=== PATIENT | male | born 1960 | race Caucasian/White ===

== ENCOUNTER 2016-09-24 09:31 | Outpatient (CLI) | payer OTHER | END 2016-09-24 09:32 | disposition home or self-care (01) | DX: I10 Essential (primary) hypertension (principal); E78.2 Mixed hyperlipidemia; Z79.899 Other long term (current) drug therapy; Z12.5 Encounter for screening for malignant neoplasm of prostate ==

== ENCOUNTER 2016-11-27 08:00 | Outpatient (CLI) | payer OTHER ==
[2016-11-27 09:08] LABS: ALBUMIN/GLOBULIN RATIO 1.5 (1.0-2.2); BILIRUBIN,TOTAL 1.2 mg/dL (0.2-1.0); BUN - BLOOD UREA NITROGEN 20 mg/dL (6-20); CALCIUM 9.1 mg/dL (8.5-10.3); CARBON DIOXIDE - CO2 29 mmol/L (21-32); CHLORIDE 101 mmol/L (101-111); CHOL/HDL RATIO 5.8 (<5.0); CHOLESTEROL 274 mg/dL; CREATININE 1.2 mg/dL (0.6-1.2); GFR - MDRD 62 (>89); GLUCOSE 108 mg/dL (70-100); HDL CHOLESTEROL 47 mg/dL; LDL/HDL RATIO 3.5 (<3.6); POTASSIUM 4.2 mmol/L (3.5-5.0); SODIUM 137 mmol/L (135-145); TOTAL PROTEIN 7.4 g/dL (6.7-8.2); TRIGLYCERIDES 322 mg/dL; VLDL CHOLESTEROL 64 mg/dL
== END 2016-11-27 08:01 | disposition home or self-care (01) ==
LOC: LAB.R 08:00
PROVIDERS: ATTEND Physician Assistant Medical
DX: I10 Essential (primary) hypertension (principal); E78.2 Mixed hyperlipidemia; R19.7 Diarrhea, unspecified; Z79.899 Other long term (current) drug therapy
CPT/HCPCS: 80053; 80061

== ENCOUNTER 2016-11-29 08:07 | Outpatient (CLI) | payer OTHER ==
[2016-12-12 23:11] LABS: TEST RESULT REPORT (())
== END 2016-11-29 08:08 | disposition home or self-care (01) ==
LOC: LAB.R 08:07
PROVIDERS: ATTEND Physician Assistant Medical
DX: I10 Essential (primary) hypertension (principal); E78.2 Mixed hyperlipidemia; R19.7 Diarrhea, unspecified; Z79.899 Other long term (current) drug therapy
CPT/HCPCS: 81599; 82705; 83630; 87045; 87046; 87077; 87177; 87209; 87329; 87493

== ENCOUNTER → 2017-02-19 | Outpatient (CLI) | payer OTHER ==
[2017-02-19 14:14] LABS: CHOL/HDL RATIO 4.3 (<5.0); CHOLESTEROL 223 mg/dL; HDL CHOLESTEROL 52 mg/dL; TRIGLYCERIDES 438 mg/dL
[2017-02-19 14:52] LABS: LDL CHOLESTEROL,DIRECT 95 mg/dL
== END ==
LOC: LAB.R 08:00
PROVIDERS: ATTEND Physician Assistant Medical
DX: E78.2 Mixed hyperlipidemia (principal); Z79.899 Other long term (current) drug therapy
CPT/HCPCS: 80061; 84450; 84460

== ENCOUNTER 2017-08-20 08:00 | Outpatient (CLI) | payer OTHER ==
[2017-08-20 14:04] LABS: ALBUMIN 4.7 g/dL (3.2-5.5); ALBUMIN/GLOBULIN RATIO 1.7 (1.0-2.2); ALKALINE PHOSPHATASE 46 IU/L (42-121); ALT ALANINE AMINOTRANSFERASE 35 IU/L (10-60); AST ASPARTATE AMINOTRANSFERASE 29 IU/L (10-42); BILIRUBIN,TOTAL 1.1 mg/dL (0.2-1.0); BUN - BLOOD UREA NITROGEN 18 mg/dL (6-20); CALCIUM 9.5 mg/dL (8.5-10.3); CARBON DIOXIDE - CO2 26 mmol/L (21-32); CHLORIDE 102 mmol/L (101-111); CHOL/HDL RATIO 5.2 (<5.0); CHOLESTEROL 214 mg/dL; GFR - MDRD 77 (>89); GLUCOSE 101 mg/dL (70-100); HDL CHOLESTEROL 41 mg/dL; LDL CHOLESTEROL,CALCULATED 119 mg/dL; LDL/HDL RATIO 2.9 (<3.6); SODIUM 137 mmol/L (135-145); TOTAL PROTEIN 7.5 g/dL (6.7-8.2); VLDL CHOLESTEROL 54 mg/dL
== END 2017-08-20 08:01 | disposition home or self-care (01) ==
LOC: LAB.R 08:00
PROVIDERS: ATTEND Physician Assistant Medical
DX: E78.5 Hyperlipidemia, unspecified (principal); Z79.899 Other long term (current) drug therapy
CPT/HCPCS: 80053; 80061; 83721

== ENCOUNTER 2018-06-27 08:00 | Outpatient (CLI) | payer OTHER ==
[2018-06-27 12:22] LABS: BASOPHILS % (AUTO) 0.9 %; EOSINOPHILS # (AUTO) 0.1 10^3/uL (0.0-0.7); EOSINOPHILS % (AUTO) 3.4 %; HGB - HEMOGLOBIN 15.3 g/dL (14.0-18.0); LYMPHOCYTES # (AUTO) 1.1 10^3/uL (1.5-3.5); LYMPHOCYTES % (AUTO) 29.5 %; MEAN CORPUSCULAR HGB CONC 34.4 g/dL (32.0-36.0); MEAN CORPUSCULAR VOLUME 92.9 fL (80.0-94.0); MEAN PLATELET VOLUME 7.4 fL (7.4-11.4); MONOCYTES # (AUTO) 0.4 10^3/uL (0.0-1.0); NEUTROPHILS # (AUTO) 2.1 10^3/uL (1.5-6.6); NEUTROPHILS % (AUTO) 56.2 %; PLT - PLATELET COUNT 199 10^3/uL (130-450); RED BLOOD COUNT 4.77 10^6/uL (4.70-6.10); RED CELL DISTRIBUTION WIDTH 14.2 % (12.0-15.0); WHITE BLOOD COUNT 3.7 x10^3/uL (4.8-10.8)
[2018-06-27 12:38] LABS: ALBUMIN 4.5 g/dL (3.2-5.5); ALBUMIN/GLOBULIN RATIO 1.5 (1.0-2.2); ALKALINE PHOSPHATASE 60 IU/L (42-121); ALT ALANINE AMINOTRANSFERASE 39 IU/L (10-60); AST ASPARTATE AMINOTRANSFERASE 32 IU/L (10-42); BILIRUBIN,TOTAL 0.7 mg/dL (0.2-1.0); BUN - BLOOD UREA NITROGEN 23 mg/dL (6-20); CALCIUM 9.2 mg/dL (8.5-10.3); CARBON DIOXIDE - CO2 30 mmol/L (21-32); CHLORIDE 102 mmol/L (101-111); CHOL/HDL RATIO 4.5 (<5.0); CHOLESTEROL 203 mg/dL; GFR - MDRD 77 (>89); GLUCOSE 100 mg/dL (70-100); HDL CHOLESTEROL 45 mg/dL; LDL CHOLESTEROL,CALCULATED 102 mg/dL; LDL/HDL RATIO 2.3 (<3.6); SODIUM 137 mmol/L (135-145); TOTAL PROTEIN 7.5 g/dL (6.7-8.2); VLDL CHOLESTEROL 56 mg/dL
[2018-06-28 12:16] LABS: HEPATITIS C ANTIBODY NON-REACTIVE (NON-REACTIVE)
== END 2018-06-27 23:59 | disposition home or self-care (01) ==
LOC: LAB.R 08:00
PROVIDERS: ATTEND Physician Assistant Medical
DX: Z00.00 Encounter for general adult medical examination without abnormal findings (principal); E78.2 Mixed hyperlipidemia; Z13.818 Encounter for screening for other digestive system disorders; Z79.899 Other long term (current) drug therapy
CPT/HCPCS: 80053; 80061; 83721; 85025; 86803

== ENCOUNTER 2019-07-13 09:38 | Outpatient (CLI) | payer OTHER ==
[2019-07-13 10:08] LABS: BASOPHILS % (AUTO) 0.6 %; EOSINOPHILS # (AUTO) 0.1 10^3/uL (0.0-0.7); EOSINOPHILS % (AUTO) 3.1 %; HGB - HEMOGLOBIN 15.1 g/dL (14.0-18.0); LYMPHOCYTES % (AUTO) 30.3 %; MEAN CORPUSCULAR HEMOGLOBIN 32.8 pg (27.0-31.0); MEAN CORPUSCULAR HGB CONC 34.4 g/dL (32.0-36.0); MEAN CORPUSCULAR VOLUME 95.4 fL (80.0-94.0); MEAN PLATELET VOLUME 8.8 fL (7.4-11.4); MONOCYTES # (AUTO) 0.4 10^3/uL (0.0-1.0); MONOCYTES % (AUTO) 11.1 %; NEUTROPHILS # (AUTO) 1.8 10^3/uL (1.5-6.6); NEUTROPHILS % (AUTO) 54.6 %; PLT - PLATELET COUNT 194 10^3/uL (130-450); RED CELL DISTRIBUTION WIDTH 13.2 % (12.0-15.0); WHITE BLOOD COUNT 3.2 x10^3/uL (4.8-10.8)
[2019-07-13 10:52] LABS: ALBUMIN 4.6 g/dL (3.2-5.5); ALBUMIN/GLOBULIN RATIO 1.6 (1.0-2.2); ALKALINE PHOSPHATASE 50 IU/L (42-121); ALT ALANINE AMINOTRANSFERASE 47 IU/L (10-60); AST ASPARTATE AMINOTRANSFERASE 35 IU/L (10-42); BILIRUBIN,TOTAL 1.1 mg/dL (0.2-1.0); BUN - BLOOD UREA NITROGEN 19 mg/dL (6-20); CALCIUM 9.5 mg/dL (8.5-10.3); CARBON DIOXIDE - CO2 28 mmol/L (21-32); CHLORIDE 99 mmol/L (101-111); CHOL/HDL RATIO 4.4 (<5.0); CHOLESTEROL 212 mg/dL; CREATININE 1.2 mg/dL (0.6-1.2); GFR - MDRD 62 (>89); GLUCOSE 122 mg/dL (70-100); HDL CHOLESTEROL 48 mg/dL; LDL CHOLESTEROL,CALCULATED 105 mg/dL; LDL/HDL RATIO 2.2 (<3.6); SODIUM 137 mmol/L (135-145); TOTAL PROTEIN 7.4 g/dL (6.7-8.2); VLDL CHOLESTEROL 59 mg/dL
== END 2019-07-13 09:39 | disposition home or self-care (01) ==
LOC: LAB 09:38
PROVIDERS: ATTEND Internal Medicine
DX: E78.2 Mixed hyperlipidemia (principal); Z12.5 Encounter for screening for malignant neoplasm of prostate; D72.819 Decreased white blood cell count, unspecified
CPT/HCPCS: 36415; 80053; 80061; 83721; 84153; 85025

== ENCOUNTER 2020-01-27 08:49 | Outpatient (CLI) | payer OTHER ==
[2020-01-27 09:06] LABS: BASOPHILS % (AUTO) 0.5 %; EOSINOPHILS # (AUTO) 0.1 10^3/uL (0.0-0.7); EOSINOPHILS % (AUTO) 2.7 %; HGB - HEMOGLOBIN 15.4 g/dL (14.0-18.0); LYMPHOCYTES # (AUTO) 1.5 10^3/uL (1.5-3.5); LYMPHOCYTES % (AUTO) 34.3 %; MEAN CORPUSCULAR HEMOGLOBIN 32.4 pg (27.0-31.0); MEAN CORPUSCULAR HGB CONC 34.5 g/dL (32.0-36.0); MEAN CORPUSCULAR VOLUME 93.7 fL (80.0-94.0); MEAN PLATELET VOLUME 8.9 fL (7.4-11.4); MONOCYTES # (AUTO) 0.4 10^3/uL (0.0-1.0); MONOCYTES % (AUTO) 8.9 %; NEUTROPHILS # (AUTO) 2.3 10^3/uL (1.5-6.6); NEUTROPHILS % (AUTO) 53.4 %; PLT - PLATELET COUNT 201 10^3/uL (130-450); RED BLOOD COUNT 4.76 10^6/uL (4.70-6.10); RED CELL DISTRIBUTION WIDTH 13.1 % (12.0-15.0); WHITE BLOOD COUNT 4.4 x10^3/uL (4.8-10.8)
[2020-01-27 09:46] LABS: ALBUMIN 4.7 g/dL (3.2-5.5); ALBUMIN/GLOBULIN RATIO 1.7 (1.0-2.2); ALKALINE PHOSPHATASE 60 IU/L (42-121); ALT ALANINE AMINOTRANSFERASE 35 IU/L (10-60); AST ASPARTATE AMINOTRANSFERASE 30 IU/L (10-42); BILIRUBIN,TOTAL 0.6 mg/dL (0.2-1.0); BUN - BLOOD UREA NITROGEN 21 mg/dL (6-20); CALCIUM 9.2 mg/dL (8.5-10.3); CARBON DIOXIDE - CO2 27 mmol/L (21-32); CHLORIDE 104 mmol/L (101-111); CHOL/HDL RATIO 6.1 (<5.0); CHOLESTEROL 220 mg/dL; GLUCOSE 107 mg/dL (70-100); HDL CHOLESTEROL 36 mg/dL; SODIUM 136 mmol/L (135-145); TOTAL PROTEIN 7.4 g/dL (6.7-8.2)
[2020-01-27 10:05] LABS: LDL CHOLESTEROL,DIRECT 71 mg/dL
== END 2020-01-27 08:50 | disposition home or self-care (01) ==
LOC: LAB 08:49
PROVIDERS: ATTEND Nurse Practitioner
DX: I10 Essential (primary) hypertension (principal); R73.01 Impaired fasting glucose; E78.2 Mixed hyperlipidemia
CPT/HCPCS: 36415; 80053; 80061; 82306; 82607; 83721; 85025

== ENCOUNTER 2020-04-25 08:37 | Day surgery (SDC) | payer OTHER ==
[2020-04-25] MEDS ORDERED: MIDAZOLAM 2 MG/2 ML VIAL IVP ONE (08:38)
[2020-04-25] MEDS ORDERED: fentaNYL 250 MCG/5 ML VIAL IVP ONE (08:38)
[2020-04-25] MEDS ORDERED: LACTATED RINGERS 1,000 ML IV ONE (08:41)
[2020-04-25] MEDS ORDERED: LACTATED RINGERS 200 ML IV ONE (11:15)
[2020-04-25 11:46] VITALS: BP 123/88
== END 2020-04-25 08:38 | disposition home or self-care (01) ==
LOC: SDS 08:37
PROVIDERS: ATTEND Surgery
PROC: 0DBL8ZZ Excision of Transverse Colon, Via Natural or Artificial Opening Endoscopic (ICD-10-PCS; principal; 2020-04-25 09:45)
DX: Z12.11 Encounter for screening for malignant neoplasm of colon (principal); D12.3 Benign neoplasm of transverse colon; K64.8 Other hemorrhoids; I10 Essential (primary) hypertension; Z87.891 Personal history of nicotine dependence
CPT/HCPCS: 45380; J3010; J7120

== ENCOUNTER 2020-06-16 08:40 | Outpatient (CLI) | payer OTHER ==
[2020-06-16 09:26] LABS: ALBUMIN 4.6 g/dL (3.2-5.5); ALBUMIN/GLOBULIN RATIO 1.6 (1.0-2.2); ALKALINE PHOSPHATASE 60 IU/L (42-121); ALT ALANINE AMINOTRANSFERASE 40 IU/L (10-60); AST ASPARTATE AMINOTRANSFERASE 33 IU/L (10-42); BILIRUBIN,TOTAL 1.3 mg/dL (0.2-1.0); BUN - BLOOD UREA NITROGEN 16 mg/dL (6-20); CALCIUM 9.4 mg/dL (8.5-10.3); CARBON DIOXIDE - CO2 28 mmol/L (21-32); CHLORIDE 101 mmol/L (101-111); CHOL/HDL RATIO 4.5 (<5.0); CHOLESTEROL 166 mg/dL; GLUCOSE 109 mg/dL (70-100); HDL CHOLESTEROL 37 mg/dL; LDL CHOLESTEROL,CALCULATED 94 mg/dL; LDL/HDL RATIO 2.5 (<3.6); SODIUM 138 mmol/L (135-145); TOTAL PROTEIN 7.5 g/dL (6.7-8.2); VLDL CHOLESTEROL 35 mg/dL
== END 2020-06-16 08:41 | disposition home or self-care (01) ==
LOC: LAB 08:40
PROVIDERS: ATTEND Nurse Practitioner
DX: E78.2 Mixed hyperlipidemia (principal)
CPT/HCPCS: 36415; 80053; 80061; 83721

== ENCOUNTER 2023-09-12 08:15 | Outpatient (CLI) | payer OTHER ==
--- NOTE | 2023-09-12 13:07 | XRAY Report ---
PROCEDURE: Foot 3 View LT INDICATIONS: LEFT FOOT PAIN TECHNIQUE: 3 views of the foot were acquired. COMPARISON: None. FINDINGS: Bones: No acute fractures or dislocations. No suspicious bony lesions. Soft tissues: Focal soft tissue prominence is seen adjacent to the skin marker at the lateral aspect of the hindfoot. IMPRESSION: Focal nonspecific soft tissue swelling at the area of clinical concern. No acute osseous abnormality. Consider hindfoot/ankle MRI with and without contrast for further evaluation. Reviewed by: Thiago Wen MD on 09/12/2023 1:05 PM PDT Approved by: Thiago Wen MD on 09/12/2023 1:05 PM PDT Station ID: [id number]
== END 2023-09-12 23:59 | disposition home or self-care (01) ==
LOC: DI.WOS 08:15
PROVIDERS: ATTEND Physician Assistant Surgical
DX: M79.672 Pain in left foot (principal)

== ENCOUNTER 2023-11-05 11:55 | Outpatient (CLI) | payer OTHER ==
[2023-11-05 12:29] LABS: BASOPHILS % (AUTO) 0.7 %; EOSINOPHILS # (AUTO) 0.1 10^3/uL (0.0-0.7); EOSINOPHILS % (AUTO) 2.2 %; HCT - HEMATOCRIT 45.6 % (42.0-52.0); HGB - HEMOGLOBIN 15.1 g/dL (14.0-18.0); LYMPHOCYTES # (AUTO) 1.3 10^3/uL (1.5-3.5); LYMPHOCYTES % (AUTO) 29.4 %; MEAN CORPUSCULAR HEMOGLOBIN 31.6 pg (27.0-31.0); MEAN CORPUSCULAR HGB CONC 33.1 g/dL (32.0-36.0); MEAN CORPUSCULAR VOLUME 95.4 fL (80.0-94.0); MEAN PLATELET VOLUME 8.8 fL (7.4-11.4); MONOCYTES # (AUTO) 0.4 10^3/uL (0.0-1.0); MONOCYTES % (AUTO) 9.4 %; NEUTROPHILS # (AUTO) 2.6 10^3/uL (1.5-6.6); NEUTROPHILS % (AUTO) 58.1 %; PLT - PLATELET COUNT 209 10^3/uL (130-450); RED BLOOD COUNT 4.78 10^6/uL (4.70-6.10); RED CELL DISTRIBUTION WIDTH 13.3 % (12.0-15.0); WHITE BLOOD COUNT 4.5 x10^3/uL (4.8-10.8)
== END 2023-11-05 11:56 | disposition home or self-care (01) ==
LOC: LAB 11:55
PROVIDERS: ATTEND Orthopaedic Surgery
DX: M67.40 Ganglion, unspecified site (principal)
CPT/HCPCS: 36415; 85025

== ENCOUNTER 2023-11-06 06:26 | Day surgery (SDC) | payer OTHER ==
[~2023-11-06 06:26] MED LIST: ceFAZolin 2 GM VIAL ONE
[2023-11-06] MEDS: LACTATED RINGERS 1,000 ML IV ONE ×2 (06:36→09:01)
[2023-11-06] MEDS ORDERED: PROPOFOL 500 MG/50 ML 500 MG/50 ML VIAL ONE (07:19)
[2023-11-06] MEDS ORDERED: fentaNYL 100 MCG/2 ML VIAL ONE (07:21)
[2023-11-06] MEDS ORDERED: fentaNYL 100 MCG/2 ML VIAL IVP PRN (07:22)
[2023-11-06] MEDS ORDERED: HYDROmorphone 0.5 MG/0.5 ML SYRINGE IVP PRN (07:22)
[2023-11-06] MEDS ORDERED: ONDANSETRON 4 MG/2 ML VIAL IVP PRN ×2 (07:22→09:00)
[2023-11-06] MEDS ORDERED: NALOXONE 0.4 MG/ML VIAL IVP PRN (07:22)
[2023-11-06] MEDS ORDERED: METOCLOPRAMIDE 10 MG/2 ML VIAL IVP PRN (07:22)
[2023-11-06] MEDS ORDERED: ATROPINE ABBOJECT 1 MG/10 ML SYRINGE IVP PRN (07:22)
[2023-11-06] MEDS ORDERED: ePHEDrine 50 MG/ML VIAL IVP PRN (07:22)
[2023-11-06] MEDS ORDERED: MORPHINE 2 MG/ML CARPUJECT IVP PRN (07:22)
--- NOTE | 2023-11-06 07:22 | ANESTHESIA ---
Pre-Anesthesia VS, & Labs - Diagnosis Left foot ganglion cyst - Procedure excision left foot ganglion Vital Signs: Temp Pulse Resp BP Pulse Ox O2 Flow Rate 36.0 C L 81 15 141/85 H 95 11/06/23 06:42 11/06/23 06:42 11/06/23 06:42 11/06/23 06:42 11/06/23 06:42 Height: 6 ft 1 in Weight (kg): 98.8 kg Body Mass Index: 28.7 BMI Classification: Overweight - NPO >8 hours - Lab Results Lab results reviewed: Yes Home Medications and Allergies Home Medications: Ambulatory Orders Atorvastatin Calcium 40 mg PO DAILY 10/30/23 lisinopriL [Zestril] 20 mg PO DAILY 08/07/13 DULoxetine [Cymbalta] 60 mg PO DAILY 04/25/20 Atorvastatin Calcium 40 mg PO DAILY 10/30/23 Allergies/Adverse Reactions: Allergies Allergy/AdvReac Type Severity Reaction Status Date / Time No Known Drug Allergies Allergy Verified 08/07/13 10:48 Anes History & Medical History - Anesthetic History Anesthesia Complications: reports: No previous complications Family history of Anesthesia Complications: Denies Family history of Malignant Hyperthermia: Denies - Medical History Cardiovascular: reports: Hypertension, High cholesterol Pulmonary: reports: None Gastrointestinal: reports: Colon polyps Urinary: reports: None Musculoskeletal: reports: None Endocrine/Autoimmune: reports: None Skin: reports: Other Smoking Status: Never smoker Psychosocial: reports: Alcohol History of Cancer?: No - Surgical History General: reports: Colonoscopy Orthopedic: reports: Other Exam General: Alert, Oriented x3, Cooperative Dental: WNL Mouth Opening: Greater than 4 Fingerbreadths Neck Mobility: Normal Mallampati classification: II Thyromental Distance: 4-6 cm Respiratory: Lungs clear, Normal breath sounds, No respiratory distress Cardiovascular: Regular rate Neurological: Normal speech Mental/Cognitive Status: Alert/Oriented X3, Normal for patient Plan Anesthesia Type: MAC, Total IV Consent for Procedure(s) Verified and Reviewed: Yes Code Status: Attempt Resuscitation ASA classification: 2-Mild systemic disease Is this case an emergency?: No
[2023-11-06] MEDS ORDERED: BUPIVACAINE 0.25% PF 30 ML VIAL ONE (07:29)
[2023-11-06] MEDS ORDERED: LIDOCAINE 1%-EPI 1:100000 20 ML MDV ONE (07:29)
[2023-11-06] MEDS ORDERED: KETAMINE 200 MG/20 ML VIAL ONE (07:31)
[2023-11-06] MEDS ORDERED: MIDAZOLAM 2 MG/2 ML VIAL ONE (07:49)
[2023-11-06] MEDS ORDERED: LACTATED RINGERS 1,000 ML IV SCH (08:00)
[2023-11-06] MEDS: BUPIVACAINE 0.25% PF 30 ML VIAL SUBQ ONE (08:45)
[2023-11-06] MEDS: LIDOCAINE 1%-EPI 1:100000 50 ML VIAL SUBQ ONE (08:45)
[2023-11-06] MEDS ORDERED: DEXAMETHASONE 10 MG/ML VIAL ONE (08:51)
[2023-11-06] MEDS ORDERED: ONDANSETRON 4 MG/2 ML VIAL ONE (08:51)
[2023-11-06] MEDS ORDERED: ACETAMINOPHEN 500 MG TABLET PO PRN (09:00)
[2023-11-06] MEDS ORDERED: oxyCODONE 5 MG TABLET PO PRN (09:00)
[2023-11-06] MEDS ORDERED: CELECOXIB 100 MG CAPSULE PO PRN (09:00)
--- NOTE | 2023-11-06 09:09 | OPERATIVE REPORT ---
Operative Report - General Procedure Date: 11/06/23 Planned Procedure: Excision ganglion cyst lateral border left foot Pre-Op Diagnosis: Ganglion cyst lateral border left foot Procedure Performed: Excision of ganglion cyst, peroneal tendon sheath origin, left foot Post Op Diagnosis: Same as preoperative diagnosis - Procedure Note Primary Surgeon: Timo Laguerre MD Secondary Surgeon: Judie BRIAN Anesthesia Provider: Shellie Chen CRNA Anesthesia Technique: General LMA Pathology: Cystic mass sent to pathology. The cystic contents was a jellylike fluid consistent with a ganglion cyst Estimated Blood Loss (mL): 5 Indications: This is a 62-year-old gentleman with a cystic-appearing mass over the lateral border of the left foot that is symptomatic with direct pressure including shoewear. There is no history of injury. Routine radiographs are normal. The cystic mass is over the lateral border of the left foot just proximal to the fifth metatarsal styloid, overlying the peroneal tendons which are intact. Patient desired mass removal because of the discomfort. Patient had aspiration of the mass prior to the procedure with recurrence. Shared decision making was performed. An informed consent for excision of ganglion cyst was obtained from the patient prior to surgery Findings: There is approximately 2 cm cystic mass contiguous and just proximal to the fifth metatarsal styloid overlying the peroneal tendons. The peroneal tendons were intact. The cystic mass had typical jellylike contents consistent with ganglion cyst Complications: None - Other Other Information/Narrative: The patient was brought to the operating room table. He was placed in a supine position. A general LMA anesthetic was provided. A gel bag was placed beneath the left buttock to internally rotate the left leg. A pneumatic tourniquet was applied to the proximal left thigh over padding. A timeout procedure was performed by the entire operating team and all were in agreement. The left foot was exsanguinated and the pneumatic tourniquet was elevated to 250 mmHg. A longitudinal incision was made directly over the mass. Care was performed to achieve full-thickness skin flaps. The dissection was carried directly on the mass from distal to proximal using blunt and tenotomy scissors for the dissection. Care was taken to avoid the sural nerve. The mass was released from the soft tissue bed overlying the peroneal tendons using the tenotomy scissors. An en bloc excision of the mass was achieved, mass sent to pathology for further dissection. The mass was punctured and jellylike fluid was encountered typical for ganglion cyst. The tourniquet was deflated. Hemostasis was achieved with electrocautery. The skin was closed with 3-0A physician assistant wrestling coach was medically necessary to help with prepping and draping, positioning, protection of vital structures, assistance during the procedure including wound closure, dressing and/or splinting.Patient tolerated procedure well the tourniquet time was 21 minutes. 3-0 strata fix subcuticular skin suture, Dermabond. Gauze, cast padding and Neil wrap to provide some compression was applied to the operative site of the left foot and ankle.
--- NOTE | 2023-11-06 09:36 | ANESTHESIA POST OP EVALUATION ---
Anesthesia Post Eval - Post Anesthesia Eval Vitals: Last Vital Signs Temp 36.8 C 11/06/23 09:22 Pulse 72 11/06/23 09:22 Resp 16 11/06/23 09:22 BP 114/86 H 11/06/23 09:22 Pulse Ox 99 11/06/23 09:22 O2 Flow Rate CV Function Including HR & BP: Stable Pain Control: Satisfactory Nausea & Vomiting: Negative Mental Status: Baseline Respiratory Status: Airway Patent Hydration Status: Satisfactory Anesthesia Complications: None
[2023-11-06 09:51] VITALS: BP 135/94; O2SAT 97
== END 2023-11-06 06:27 | disposition home or self-care (01) ==
LOC: SDS 06:26
PROVIDERS: ATTEND Orthopaedic Surgery
PROC: 0LBW0ZZ Excision of Left Foot Tendon, Open Approach (ICD-10-PCS; principal; 2023-11-06 07:30)
DX: M67.472 Ganglion, left ankle and foot (principal); I10 Essential (primary) hypertension
CPT/HCPCS: 28090; J3490; J7120